=== PATIENT | male | born 1995 | race Two or more races ===

== ENCOUNTER 2023-05-04 00:03 | Emergency (ER) | payer SELFPAY ==
[~2023-05-04] VITALS: Ht 172.7 cm; Wt 79.5 kg
[2023-05-04 00:09] VITALS: BP 113/67; PULSE 110; RESP 18; O2SAT 98
== END 2023-05-04 02:30 | disposition home or self-care (01) ==
LOC: EDBD 00:03 → ER 00:03
DX: F41.9 Anxiety disorder, unspecified (principal)
CPT/HCPCS: 93005